=== PATIENT | female | born 1955 | race Caucasian/White ===

== ENCOUNTER → 2022-04-11 11:21 | Outpatient (BNVA) | payer MEDICARE, OTHER, SELFPAY | PROVIDERS: Family Provider Family Medicine; PCP Nurse Practitioner Family; Visit Provider Surgery | DX: N63.0 Unspecified lump in unspecified breast (principal) | CPT/HCPCS: 99203 ==

== ENCOUNTER → 2023-12-02 11:39 | Outpatient (BNVA) | payer MEDICARE, OTHER, SELFPAY | PROVIDERS: Family Provider Family Medicine; PCP Nurse Practitioner Family; Visit Provider Internal Medicine Rheumatology | DX: R76.8 Other specified abnormal immunological findings in serum (principal); M19.042 Primary osteoarthritis, left hand; M19.011 Primary osteoarthritis, right shoulder; Z79.899 Other long term (current) drug therapy; M25.50 Pain in unspecified joint; Z71.85 Encounter for immunization safety counseling | CPT/HCPCS: 36415; 73030; 73130; 73630; 80076; 82306; 82565; 85025; 85651; 86160; 86162; 86200; 86235; 86255; 86376; 86431; 86800; 99204 ==

== ENCOUNTER 2024-01-07 12:44 | Outpatient (CLI) | payer MEDICARE, OTHER, SELFPAY ==
--- NOTE | 2024-01-07 13:17 | MM_ITS ---
WS: [id number] DIAGNOSTIC BILATERAL DIGITAL BREAST TOMOSYNTHESIS MAMMOGRAPHY WITH CAD HISTORY: OTHER ABNORMAL FINDINGS 2 YR AGO COMPARISON: Mammogram 02/21/2022, prior breast ultrasound 02/28/2022 TECHNIQUE: Bilateral craniocaudad, mediolateral oblique, and mediolateral views are submitted with to moskatlyn and CORRINA. Spot compression RIGHT CC. Computer aided detection utilized. Breast composition: There are scattered areas of fibroglandular density. Encapsulated mass in the ant erior lateral RIGHT breast, upper outer quadrant measures 3.9 x 1.6 cm. Similar in appearance to the prior study and consistent with a fibroadenolipoma. Mass contains fat and normal breast tissue. No in terval change. No suspicious calcifications. Benign calcifications in each breast. 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
--- NOTE | 2024-01-07 14:30 | XR_ITS ---
WS: [id number] SCREENING DEXA SCAN IPDIA CLINICAL INFORMATION: Z78.0 - Asymptomatic menopausal state COMPARISON: None. FINDINGS: The L1-L4 bone mineral density measures 0.853 g/cm2. This corresponds to a T score score of -2.7 and Z score of -1.2. Left femoral neck bone mineral density measures 0.651 g/cm2. This corresponds to a T score of -2.8 an d Z score of -1.6. Right femoral neck bone mineral density measures 0.638 g/cm2. This corresponds to a T score -2.9of an d Z score of -1.7. Mean femoral neck bone mineral density measures 0.644 g/cm2. This corresponds to a T score of -2.9 an d Z score of -1.7. IMPRESSION: Osteoporosis lumbar spine and femoral necks. Patient's FRAX calculated 10 year probability for major osteoporotic fracture is 32.4% and osteoporot ic hip fracture is 10.1%.
== END 2024-01-07 12:45 | disposition home or self-care (01) ==
LOC: RAD 12:44
PROVIDERS: Family Provider Family Medicine; PCP Family Medicine; Visit Provider Family Medicine
DX: D24.1 Benign neoplasm of right breast (principal); R92.323 Mammographic fibroglandular density, bilateral breasts; Z13.820 Encounter for screening for osteoporosis; Z78.0 Asymptomatic menopausal state; M81.0 Age-related osteoporosis without current pathological fracture
CPT/HCPCS: 77062; 77080; G0279

== ENCOUNTER → 2024-03-12 14:34 | Outpatient (BNVA) | payer MEDICARE, OTHER, SELFPAY | PROVIDERS: Family Provider Family Medicine; PCP Family Medicine; Visit Provider Internal Medicine Rheumatology | DX: Z79.899 Other long term (current) drug therapy (principal); M25.50 Pain in unspecified joint; R76.8 Other specified abnormal immunological findings in serum; R73.03 Prediabetes; Z71.85 Encounter for immunization safety counseling | CPT/HCPCS: 99214 ==

== ENCOUNTER → 2024-04-15 11:28 | Outpatient (BNVA) | payer MEDICARE, OTHER, SELFPAY | PROVIDERS: Family Provider Family Medicine; PCP Family Medicine; Visit Provider Family Medicine | DX: Z79.899 Other long term (current) drug therapy (principal); M25.50 Pain in unspecified joint; R76.8 Other specified abnormal immunological findings in serum; R73.03 Prediabetes; E55.9 Vitamin D deficiency, unspecified; R53.83 Other fatigue; M81.0 Age-related osteoporosis without current pathological fracture; E03.9 Hypothyroidism, unspecified; L98.9 Disorder of the skin and subcutaneous tissue, unspecified; Z51.81 Encounter for therapeutic drug level monitoring; L91.8 Other hypertrophic disorders of the skin; R20.8 Other disturbances of skin sensation | CPT/HCPCS: 80053; 80076; 82565; 84439; 84443; 84481; 85025; 86140 ==

== ENCOUNTER → 2024-04-16 10:25 | Outpatient (BNVA) | payer MEDICARE, OTHER, SELFPAY | PROVIDERS: Family Provider Family Medicine; PCP Family Medicine; Visit Provider Family Medicine | DX: Z79.899 Other long term (current) drug therapy (principal); M25.50 Pain in unspecified joint; R76.8 Other specified abnormal immunological findings in serum; R73.03 Prediabetes; E55.9 Vitamin D deficiency, unspecified; R53.83 Other fatigue; M81.0 Age-related osteoporosis without current pathological fracture; E03.9 Hypothyroidism, unspecified; L98.9 Disorder of the skin and subcutaneous tissue, unspecified; Z51.81 Encounter for therapeutic drug level monitoring; L91.8 Other hypertrophic disorders of the skin; R20.8 Other disturbances of skin sensation | CPT/HCPCS: 85025 ==

== ENCOUNTER → 2024-04-17 13:47 | Outpatient (BNVA) | payer MEDICARE, OTHER, SELFPAY | PROVIDERS: Family Provider Family Medicine; PCP Family Medicine; Referring Provider Family Medicine; Visit Provider Family Medicine | DX: R73.03 Prediabetes (principal); Z79.899 Other long term (current) drug therapy; R76.8 Other specified abnormal immunological findings in serum; M25.50 Pain in unspecified joint; Z51.81 Encounter for therapeutic drug level monitoring | CPT/HCPCS: 83036; 85025 ==

== ENCOUNTER → 2024-07-27 14:29 | Outpatient (BNVA) | payer MEDICARE, OTHER, SELFPAY | PROVIDERS: Family Provider Family Medicine; PCP Family Medicine; Visit Provider Internal Medicine Rheumatology | DX: M05.9 Rheumatoid arthritis with rheumatoid factor, unspecified (principal); M19.041 Primary osteoarthritis, right hand; M19.042 Primary osteoarthritis, left hand; Z79.899 Other long term (current) drug therapy; R76.8 Other specified abnormal immunological findings in serum; Z71.85 Encounter for immunization safety counseling | CPT/HCPCS: 99214 ==

== ENCOUNTER 2024-09-24 13:55 | Outpatient (CLI) | payer MEDICARE, OTHER, SELFPAY ==
[2024-09-24 14:43] LABS: Chol HDL Ratio 1.92 mg/dL (0.0-4.40); Cholesterol 226 mg/dL (0-200); HDL Cholesterol 118 mg/dL (60-100); LDL Cholesterol Calculated 92 mg/dL (50-129); LDL HDL Ratio 0.78 RATIO (0.00-3.22); Thyroid Stimulating Hormone 0.15 uIU/mL (0.27-4.20); Triglycerides 79 mg/dL (0-150)
[2024-09-24 14:58] LABS: Estmated Average Glucose 143; Hemoglobin A1C 6.6 % (4.0-6.0)
[2024-09-24 16:07] LABS: Free T4 Free Thyroxine 0.77 ng/dL (0.82-1.77); T3 Free 3.1 PG/ML (2.0-4.4)
== END 2024-09-24 13:56 | disposition home or self-care (01) ==
LOC: LAB 13:57
PROVIDERS: Family Provider Family Medicine; PCP Family Medicine; Visit Provider Internal Medicine Rheumatology
DX: Z79.899 Other long term (current) drug therapy (principal); E03.9 Hypothyroidism, unspecified; R73.03 Prediabetes; Z13.6 Encounter for screening for cardiovascular disorders; M25.50 Pain in unspecified joint
CPT/HCPCS: 36415; 80061; 83036; 84439; 84443; 84481

== ENCOUNTER → 2024-11-30 13:58 | Outpatient (BNVA) | payer MEDICARE, SELFPAY | PROVIDERS: Family Provider Family Medicine; PCP Family Medicine; Visit Provider Internal Medicine Rheumatology | DX: M25.50 Pain in unspecified joint (principal); R76.8 Other specified abnormal immunological findings in serum; Z79.899 Other long term (current) drug therapy; Z71.85 Encounter for immunization safety counseling | CPT/HCPCS: 99214 ==

== ENCOUNTER → 2025-01-07 07:55 | Outpatient (BNVA) | payer MEDICARE, SELFPAY | PROVIDERS: Family Provider Family Medicine; PCP Family Medicine; Visit Provider Nurse Practitioner Family | DX: L29.89 Other pruritus (principal); L30.0 Nummular dermatitis; L82.1 Other seborrheic keratosis; L57.8 Other skin changes due to chronic exposure to nonionizing radiation; L81.4 Other melanin hyperpigmentation; D22.5 Melanocytic nevi of trunk; L21.8 Other seborrheic dermatitis; L57.0 Actinic keratosis | CPT/HCPCS: 17000; 99204 ==

== ENCOUNTER → 2025-01-15 10:26 | Outpatient (BNVA) | payer MEDICARE, SELFPAY | PROVIDERS: Family Provider Family Medicine; PCP Family Medicine; Visit Provider Nurse Practitioner Family | DX: L29.89 Other pruritus (principal); E11.9 Type 2 diabetes mellitus without complications | CPT/HCPCS: 80048; 82607; 82746; 83550 ==

== ENCOUNTER → 2025-02-08 13:46 | Outpatient (BNVA) | payer MEDICARE, SELFPAY | PROVIDERS: Family Provider Family Medicine; PCP Family Medicine; Visit Provider Nurse Practitioner Family | DX: L29.89 Other pruritus (principal); L21.8 Other seborrheic dermatitis | CPT/HCPCS: 99214 ==

== ENCOUNTER 2025-03-02 11:32 | Outpatient (CLI) | payer MEDICARE, SELFPAY ==
--- NOTE | 2025-03-02 11:40 | MM_ITS ---
WS: [id number] BILATERAL 3D TOMOSYNTHESIS DIGITAL SCREENING MAMMOGRAPHY WITH CAD CLINICAL INFORMATION: SCREENING HISTORY: Screening mammogram. No current complaints. COMPARISON: 2023 TECHNIQUE: Bilateral CC and MLO views. FINDINGS: Scattered fibroglandular densities bilaterally. No suspicious focal mass, asymmetry, calcifications, or architectural distortion. No evidence of malignancy. Incidental punctate calcifications. Stable fibroadenolipoma (hamartoma) in the upper outer RIGHT breast. Vascular calcification. MM/MM [facility] tomosynthesis [id number] IMPRESSION: DENSITY: There are scattered areas of fibroglandular density. BI-RADS: 2 - Benign. FOLLOW UP: 1 Year Follow-up Recommend return to annual screening mammography.
== END 2025-03-02 11:33 | disposition home or self-care (01) ==
PROVIDERS: PCP Family Medicine; Visit Provider Family Medicine
DX: Z12.31 Encounter for screening mammogram for malignant neoplasm of breast (principal); R92.323 Mammographic fibroglandular density, bilateral breasts; R92.1 Mammographic calcification found on diagnostic imaging of breast; D24.1 Benign neoplasm of right breast
CPT/HCPCS: 77063; 77067

== ENCOUNTER → 2025-04-06 10:22 | Outpatient (BNVA) | payer MEDICARE, SELFPAY | PROVIDERS: Family Provider Family Medicine; PCP Family Medicine; Visit Provider Family Medicine | DX: E03.9 Hypothyroidism, unspecified (principal); E11.9 Type 2 diabetes mellitus without complications; D63.8 Anemia in other chronic diseases classified elsewhere | CPT/HCPCS: 80053; 83036; 83550; 84439; 84443; 84481; 85025 ==

== ENCOUNTER → 2025-06-29 10:31 | Outpatient (BNVA) | payer MEDICARE, SELFPAY | PROVIDERS: Family Provider Family Medicine; PCP Family Medicine; Referring Provider Family Medicine; Visit Provider Family Medicine | DX: E03.9 Hypothyroidism, unspecified (principal) | CPT/HCPCS: 84439; 84443; 84481 ==

== ENCOUNTER → 2025-10-05 08:48 | Outpatient (BNVA) | payer MEDICARE, SELFPAY | PROVIDERS: Family Provider Family Medicine; PCP Family Medicine; Referring Provider Family Medicine; Visit Provider Family Medicine | DX: E11.9 Type 2 diabetes mellitus without complications (principal); E03.9 Hypothyroidism, unspecified; M81.0 Age-related osteoporosis without current pathological fracture; D63.8 Anemia in other chronic diseases classified elsewhere | CPT/HCPCS: 80053; 80061; 83036; 84439; 84443; 84481; 85025 ==